=== PATIENT | male | born 1955 | race Caucasian/White ===

== ENCOUNTER 2021-09-22 17:00 | Inpatient (IN) | payer BC, MEDICARE ==
--- NOTE | 2021-09-22 18:39 | US ---
EXAMINATION TYPE: US venous doppler duplex UE RT DATE OF EXAM: 09/22/2021 COMPARISON: NONE CLINICAL HISTORY: r/o SVC syndrome. Patient had excisional biopsy of right sided lymph node, diagnose d with follicular lymphoma, now patient has grossly enlarged and swollen right chest and arm, no h/o dvt, incision site has drainage tube and still actively draining. SIDE PERFORMED: Right Right Arm: Very limited scan due to extensive edema, vessels seen were negative for DVT soft tissue scan of right neck produced multiple small lymph nodes only. IMPRESSION: Limited scan with subcutaneous edema no obvious deep vein thrombosis of the right upper extremity.
[2021-09-22] MEDS ORDERED: DEXTROSE 50% SYRINGE 50 ML IVP PRN ×2 (19:53)
[2021-09-22 20:05] LABS: Glucose,Whole Blood 123 mg/dL (70-110)
[2021-09-22 20:10] LABS: Basophils % (A) 0 %; Eosinophils # (A) 0.1 k/uL (0-0.7); Eosinophils % (A) 1 %; HCT 42.2 % (39.0-53.0); HGB 13.9 gm/dL (13.0-17.5); Lymphocytes # (A) 0.8 k/uL (1.0-4.8); Lymphocytes % (A) 13 %; MCH 32.6 pg (25.0-35.0); MCV 98.9 fL (80.0-100.0); Mean Platelet Volume 7.2; Monocytes # (A) 0.3 k/uL (0-1.0); Monocytes % (A) 5 %; Neutrophils # (A) 4.7 k/uL (1.3-7.7); Neutrophils % (A) 79 %; Platelet Count 632 k/uL (150-450); RBC 4.26 m/uL (4.30-5.90); RDW 13.1 % (11.5-15.5); WBC 5.9 k/uL (3.8-10.6)
[2021-09-22 20:20] LABS: ALT 17 U/L (4-49); AST 47 U/L (17-59); African American GFR (CKD) >90 (>60 ml/min/1.73 sqM); Albumin 3.2 g/dL (3.5-5.0); Albumin/Globulin Ratio 1.4; Alkaline Phosphatase 90 U/L (38-126); Anion Gap 7 mmol/L; Blood Urea Nitrogen 33 mg/dL (9-20); Calcium 8.8 mg/dL (8.4-10.2); Carbon Dioxide 27 mmol/L (22-30); Chloride 91 mmol/L (98-107); Globulin 2.3 g/dL; Glucose 123 mg/dL (74-99); Magnesium 2.2 mg/dL (1.6-2.3); Non-African American GFR(CKD) 90 (>60 ml/min/1.73 sqM); Potassium 4.8 mmol/L (3.5-5.1); Sodium 125 mmol/L (137-145); Total Bilirubin 0.9 mg/dL (0.2-1.3); Total Protein 5.5 g/dL (6.3-8.2)
[2021-09-22 20:25] LABS: LDH 2298 U/L (313-618)
[2021-09-22 20:31] LABS: C Reactive Protein 12.7 mg/dL (<1.0)
[2021-09-22] MEDS: INSULIN ASPART (NovoLOG) 100 UNIT/ML VIAL SQ SCH (20:43)
[2021-09-22 21:32] LABS: Erythrocyte Sedimentation Rate 46 mm/hr (0-15)
[2021-09-22] MEDS ORDERED: SODIUM CHLORIDE 0.9% 1,000 ML IV ONE (23:26)
[2021-09-22] MEDS: SODIUM CHLORIDE 0.9% 1,000 ML IV SCH (23:42)
[2021-09-23] MEDS: HYDROcodone/APAP 5-325MG 1 EACH TAB PO PRN ×4 (00:58→21:03)
[2021-09-23] MEDS: PIPERACILLIN-TAZOBACTAM 3.375 GM in SODIUM CHLORIDE 0.9% 100 ML IVPB SCH ×3 (01:30→15:42)
[2021-09-23 05:25] VITALS: RESP 16
[2021-09-23 06:22] LABS: Basophils % (A) 0 %; Eosinophils # (A) 0.2 k/uL (0-0.7); Eosinophils % (A) 3 %; HCT 37.2 % (39.0-53.0); HGB 12.3 gm/dL (13.0-17.5); Lymphocytes # (A) 0.8 k/uL (1.0-4.8); Lymphocytes % (A) 13 %; MCH 31.8 pg (25.0-35.0); MCV 96.3 fL (80.0-100.0); Mean Platelet Volume 7.2; Monocytes # (A) 0.5 k/uL (0-1.0); Monocytes % (A) 9 %; Neutrophils # (A) 4.3 k/uL (1.3-7.7); Neutrophils % (A) 74 %; Platelet Count 540 k/uL (150-450); RBC 3.86 m/uL (4.30-5.90); RDW 12.6 % (11.5-15.5); WBC 5.8 k/uL (3.8-10.6)
[2021-09-23 06:26] LABS: African American GFR (CKD) >90 (>60 ml/min/1.73 sqM); Anion Gap 3 mmol/L; Blood Urea Nitrogen 29 mg/dL (9-20); Calcium 8.1 mg/dL (8.4-10.2); Carbon Dioxide 26 mmol/L (22-30); Chloride 95 mmol/L (98-107); Glucose 98 mg/dL (74-99); Non-African American GFR(CKD) >90 (>60 ml/min/1.73 sqM); Potassium 4.4 mmol/L (3.5-5.1); Sodium 124 mmol/L (137-145)
[2021-09-23 07:08] LABS: Glucose,Whole Blood 116 mg/dL (70-110)
[2021-09-23] MEDS: INSULIN ASPART (NovoLOG) 100 UNIT/ML VIAL SQ SCH ×4 (07:19→21:01)
[2021-09-23] MEDS: HEPARIN SODIUM,PORCINE/PF 5,000 UNIT/0.5 ML SYRINGE SQ SCH ×2 (08:50→21:01)
[2021-09-23] MEDS: ATORVASTATIN 20 MG TAB PO SCH (08:50)
[2021-09-23] MEDS: PANTOPRAZOLE 40 MG TABLET PO SCH (08:51)
[2021-09-23] MEDS: NICOTINE 14MG/24HR PATCH TRANSDERM SCH (10:07)
[2021-09-23] MEDS ORDERED: METHYL SALICYLATE/MENTHOL CREAM 5 OZ TOPICAL PRN (10:39)
[2021-09-23] MEDS: SODIUM CHLORIDE 0.9% 1,000 ML IV SCH (11:03)
[2021-09-23 11:38] LABS: Glucose,Whole Blood 118 mg/dL (70-110)
--- NOTE | 2021-09-23 11:47 | P.CON ---
Consult Note - . Consult date: 09/23/21 Assessment/Plan:: Mr. 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 Unfortunately, I am not able to view the outside CT at this time. However, clinically I have low concern for SVC syndrome. However, his presentation is notable for an expansile mass that is causing restriction on range of motion and edema of the right upper extremity. By virtue of his skin nodules he is advanced stage and mainstay of therapy will be systemic. He will also need PET/CT. In the meantime, he is a good candidate for palliative radiotherapy to this area as follicular lymphomas tend to be quite radiosensitive. I discussed this with the patient and his and they would like to proceed. He will undergo CT simulation today with treatment to start shortly thereafter. We will likely treat with 2 fractions, or 12 if the disease burden is felt to be large enough that he will not have durable palliation with 2 fractions. He does not need to stay as an inpatient for the duration of treatment. I reviewed expected outcomes and toxicities with the patient and his . Of note, the rapid enlargement of his lesion is not clinically consistent with a low-grade lymphoma. Discussed with Dr. Bar and additional biopsy may be warranted to tease out if there is also a high-grade component to his disease. John Waller MD Radiation Oncology History of Present Illness H&P Date: 09/23/21 Chief Complaint: "I have arm swelling" Mr. 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 His history begins approximately 5-6 weeks ago when he first noticed a mass in his right chest wall. He underwent CT chest with IV contrast at [facility] on 08/26/2021. This demonstrated right axillary lymphadenopathy measuring up to 7.8 cm, as well as contiguous soft tissue extension to involved the right pectoralis major, measuring up to 23.0 cm. There were additional soft tissue nodular deposits along the right chest wall. He met with Dr. Mely Warren and underwent excisional biopsy on 09/06/2021. Final pathology demonstrated follicular lymphoma, grade 1-2. He met with Dr. Warren postoperatively on 09/09/2021 and still has the UTE drain in due to high output. Today, he notes no difficulty with breathing, cough, difficulty swallowing, or facial swelling. He is unable to lift his arms above his head. He does note philip edema of the right upper extremity. He has not yet started therapy for his cancer, having initially been seen yesterday by Dr. Aneudy Bar. Past Medical History Past Medical History: Cancer, Diabetes Mellitus, Hearing Disorder / Deafness, Hyperlipidemia, Hypertension History of Any Multi-Drug Resistant Organisms: None Reported Past Surgical History: Appendectomy, Hernia Repair Past Anesthesia/Blood Transfusion Reactions: No Reported Reaction Past Psychological History: No Psychological Hx Reported Smoking Status: Current every day smoker Past Alcohol Use History: Occasional Past Drug Use History: None Reported - Past Family History Father Family Medical History: Cancer Physical Exam Vitals: Vital Signs Temp Pulse Resp BP Pulse Ox 09/23/21 07:10 97.9 F 103 H 16 104/64 94 L 09/23/21 05:00 98.1 F 101 H 16 104/65 93 L 09/22/21 23:39 98.4 F 107 H 18 91/54 92 L 09/22/21 17:15 98.3 F 100 15 95/58 93 L Intake and Output 09/22/21 09/23/21 09/23/21 22:59 06:59 14:59 Intake Total 590 Output Total 210 195 Balance -210 395 Intake: Oral 590 Output: Drainage 210 195 Right Lateral Chest 210 195 Other: Voiding Method Toilet Toilet Urinal Urinal # Voids 2 Weight 91.5 kg - Constitutional General appearance: cooperative, mild distress - EENT Eyes: normal appearance ENT: hard of hearing - Neck Neck: lymphadenopathy - Respiratory normal respiratory effort - Neurologic upper extremity strength intact - Musculoskeletal philip lymphedema of right upper extremity expansile mass involving the right axilla with extension to the pectoralis major, with UTE drain in place, associated skin nodules inferiorly
[2021-09-23] MEDS ORDERED: METHYL SALICYLATE-MENTHOL OINT (3 OZ TUBE) TOPICAL PRN (12:35)
--- NOTE | 2021-09-23 13:57 | HP ---
HISTORY AND PHYSICAL CHIEF COMPLAINTS: Pain and swelling of the right arm, right axilla and right side of the chest. HISTORY OF PRESENT ILLNESS: This 65-year-old gentleman with a past medical history of diabetes and multiple other medical problems, being followed by Dr. Arnold in the outpatient setting, apparently lifted an air conditioner on July 11 and according to his , the patient noted pain and swelling progressively in the right axilla and the right chest with some limitation of movement. Patient was seen as an outpatient by Dr. Bar and his primary physician. Dr. Mely Warren performed an axillary biopsy reported as low-grade follicular lymphoma. Because of increasing pain and swelling and difficulties, the patient was admitted for further evaluation and treatment. Local radiation is being planned by Radiology. There is no history of any fever, rigors or chills. There is significant induration from the top of the shoulder right up to the upper abdomen. MRV is being planned by Dr. Bar to rule out the possibility of vascular occlusion. PAST MEDICAL HISTORY: Diabetes mellitus. Rest of the history reviewed. HOME MEDICATIONS: Home medications include metformin. The rest of the medications are reviewed and doses are reviewed. ALLERGIES: NONE. FAMILY HISTORY: History of cancer. SOCIAL HISTORY: Smoking. REVIEW OF SYSTEMS: Fourteen-point review of systems negative except as mentioned earlier. PHYSICAL EXAMINATION: Pulse 103, blood pressure 104/62, respirations 16. HEENT: Conjunctivae normal. NECK: Some swelling on the right side. Otherwise, extensive swelling and induration, tenderness in the right shoulder, right arm, right axilla, right side of the chest. is tender with some ecchymosis and indurations felt even up to the upper abdomen. Right leg swelling suggestive of lymphedema also. CARDIOVASCULAR: S1, S2 muffled. RESPIRATION: A few scattered rhonchi. ABDOMEN: Obese. LEGS: No edema. No swelling. NERVOUS SYSTEM: No focal deficit. LABS: WBC 5.2, hemoglobin 12.3, sodium 124. Lactic acid is 2.6. LDH is noted CRP is 12.7. ASSESSMENT: 1. Significant lymphadenopathy on the right side with follicular lymphoma with significant lymphedema and obstruction. 2. Rule out sepsis. 3. Hyponatremia. 4. Diabetes mellitus, type 2. 5. UTE drain in situ. 6. Multiple medical problems. RECOMMENDATIONS AND DISCUSSION: In this 65-year-old gentleman who presented with multiple complex medical issues, we will monitor the patient closely. I would provide symptomatic treatment, DVT prophylaxis. Broad-spectrum IV antibiotics initiated. Also recommend cultures and infectious disease consultation with Dr. Caceres. Follow closely with Dr. Bar. Local radiation per Radiology. Overall prognosis is extremely guarded because of the multiple complex medical issues. Further recommendations to follow. Will cut down the IV fluids. MMODL / IJN: [id number] / [facility]ENTERMireille
--- NOTE | 2021-09-23 14:44 | P.CONS ---
History of Present Illness - Reason for Consult Consult date: 09/23/21 SVC syndrome Requesting physician: Harriett Campbell - Chief Complaint RUE swelling, back pain - History of Present Illness Mr. Gomez is a 65 year old gentleman who presents for a new diagnosis of follicular lymphoma. He and his note the development of right axillary lymphadenopathy at the end of June 2021. A picture on his 's phone had right axillary swelling without right arm or chest swelling. Over time, he noted progressive swelling of his right upper arm and chest. CT chest on 08/26/21 revealed 7.6 cm right axillary lymphadenopathy with noted contiguous extension to the right pectoralis major muscle with thickening measuring 15.1 x 23 cm. Scattered subcutaneous soft tissue deposits were noted in the right lateral thoracic wall & anterior right deltoid muscle. Trace right pleural effusion was also noted. Portocaval lymphadenopathy was also visualized. Excisional biopsy of the right axillary lymph node on 09/06/21 revealed low grade follicular lymphoma. Pathology review revealed CD20 & CD10 expression with weak BCL-2 & BCL-6 expression. Flow cytometry revealed 13% monoclonal population of CD10 positive B-cells that were kappa restricted. He presents today for additional management recommendations. He has extensive swelling of the right arm and upper chest compared to the left side. This is painful in nature and has been controlled with norco5/325 every 6 hours. He has had anorexia and weight loss of about 15-20 Ibs since the end of June 2021. He denies any facial plethora, cough, or dyspnea. He is a current smoker & smokes about 1 pack daily. He has UTE drain in the right axilla draining serous fluid. Per , it has continued to drain since placement with no reduction in fluid quantity. He was direct admitted to [facility] [place] for further work up, SVC syndrome. Elevated lactic acid 3.2, Na+ 124, LDH 2298. Other testing pending. Review of Systems 10 point ROS is neg except as stated in HPI Past Medical History Past Medical History: Cancer, Diabetes Mellitus, Hearing Disorder / Deafness, Hyperlipidemia, Hypertension History of Any Multi-Drug Resistant Organisms: None Reported Past Surgical History: Appendectomy, Hernia Repair Past Anesthesia/Blood Transfusion Reactions: No Reported Reaction Past Psychological History: No Psychological Hx Reported Smoking Status: Current every day smoker Past Alcohol Use History: Occasional Past Drug Use History: None Reported - Past Family History Father Family Medical History: Cancer Medications and Allergies Home Medications Medication Instructions Recorded Confirmed Type Atorvastatin [Lipitor] 20 mg PO DAILY 09/22/21 09/22/21 History HYDROcodone/APAP 5-325MG [Hardesty 1 tab PO Q4HR PRN 09/22/21 09/22/21 History 5-325] lisinopriL [Zestril] 20 mg PO DAILY 09/22/21 09/22/21 History metFORMIN HCL 1,000 mg PO BID 09/22/21 09/22/21 History Allergies Allergy/AdvReac Type Severity Reaction Status Date / Time No Known Allergies Allergy Verified 09/22/21 19:29 Physical Exam Vitals: Vital Signs Temp Pulse Resp BP Pulse Ox 09/23/21 12:47 97.9 F 96 16 111/69 95 09/23/21 07:10 97.9 F 103 H 16 104/64 94 L 09/23/21 05:00 98.1 F 101 H 16 104/65 93 L 09/22/21 23:39 98.4 F 107 H 18 91/54 92 L 09/22/21 17:15 98.3 F 100 15 95/58 93 L Intake and Output 09/22/21 09/23/21 09/23/21 22:59 06:59 14:59 Intake Total 590 Output Total 210 195 Balance -210 395 Intake: Oral 590 Output: Drainage 210 195 Right Lateral Chest 210 195 Other: Voiding Method Toilet Toilet Urinal Urinal # Voids 2 Weight 91.5 kg RUE skin is blistered. The right chest and shoulder are swollen, hard to touch, pt can raise the arm with pain. Rt ax LN removal incision red - Constitutional General appearance: average body habitus, cooperative, no acute distress - EENT Eyes: anicteric sclerae, EOMI ENT: hard of hearing, normal oropharynx - Neck Neck: lymphadenopathy - Respiratory Respiratory: right: other (no breath sounds in RML, faint in RLL), bilateral: diminished - Cardiovascular Rhythm: regular Heart sounds: normal: S1, S2 Abnormal Heart Sounds: no systolic murmur, no diastolic murmur, no rub, no S3 Gallop, no S4 Gallop, no click, no other leg Peripheral Edema: bilateral: Trace - Gastrointestinal Entire rt side of abd is hard to palpation, not painful, it is not hempatomegaly, BS +, soft otherwise General gastrointestinal: normal bowel sounds - Integumentary Rt arm skin is blistered, visible severe venous congestion of the right chest, sternum - Neurologic Neurologic: CNII-XII intact (grossly) - Psychiatric Psychiatric: A&O x's 3, appropriate affect, intact judgment & insight Results CBC & Chem 7: 09/23/21 05:59 09/23/21 05:59 Labs: Abnormal Lab Results - Last 24 Hours (Table) 09/22/21 09/22/21 09/22/21 Range/Units 19:54 19:54 19:54 RBC 4.26 L (4.30-5.90) m/uL Hgb (13.0-17.5) gm/dL Hct (39.0-53.0) % Plt Count 632 H (150-450) k/uL Lymphocytes # 0.8 L (1.0-4.8) k/uL ESR 46 H (0-15) mm/hr Sodium 125 L (137-145) mmol/L Chloride 91 L (98-107) mmol/L BUN 33 H (9-20) mg/dL Glucose 123 H (74-99) mg/dL POC Glucose (mg/dL) (70-110) mg/dL Hemoglobin A1c (0.0-6.0) % Plasma Lactic Acid Alfredo (0.7-2.0) mmol/L Calcium (8.4-10.2) mg/dL Lactate Dehydrogenase 2298 H (313-618) U/L C-Reactive Protein 12.7 H (<1.0) mg/dL Total Protein 5.5 L (6.3-8.2) g/dL Albumin 3.2 L (3.5-5.0) g/dL Procalcitonin 0.22 H (0.02-0.09) ng/mL 09/22/21 09/22/21 09/22/21 Range/Units 20:00 20:03 22:45 RBC (4.30-5.90) m/uL Hgb (13.0-17.5) gm/dL Hct (39.0-53.0) % Plt Count (150-450) k/uL Lymphocytes # (1.0-4.8) k/uL ESR (0-15) mm/hr Sodium (137-145) mmol/L Chloride (98-107) mmol/L BUN (9-20) mg/dL Glucose (74-99) mg/dL POC Glucose (mg/dL) 123 H (70-110) mg/dL Hemoglobin A1c 6.2 H (0.0-6.0) % Plasma Lactic Acid Alfredo 3.2 H* (0.7-2.0) mmol/L Calcium (8.4-10.2) mg/dL Lactate Dehydrogenase (313-618) U/L C-Reactive Protein (<1.0) mg/dL Total Protein (6.3-8.2) g/dL Albumin (3.5-5.0) g/dL Procalcitonin (0.02-0.09) ng/mL 09/23/21 09/23/21 09/23/21 Range/Units 01:16 05:59 05:59 RBC 3.86 L (4.30-5.90) m/uL Hgb 12.3 L (13.0-17.5) gm/dL Hct 37.2 L (39.0-53.0) % Plt Count 540 H (150-450) k/uL Lymphocytes # 0.8 L (1.0-4.8) k/uL ESR (0-15) mm/hr Sodium 124 L (137-145) mmol/L Chloride 95 L (98-107) mmol/L BUN 29 H (9-20) mg/dL Glucose (74-99) mg/dL POC Glucose (mg/dL) (70-110) mg/dL Hemoglobin A1c (0.0-6.0) % Plasma Lactic Acid Alfredo 3.1 H* (0.7-2.0) mmol/L Calcium 8.1 L (8.4-10.2) mg/dL Lactate Dehydrogenase (313-618) U/L C-Reactive Protein (<1.0) mg/dL Total Protein (6.3-8.2) g/dL Albumin (3.5-5.0) g/dL Procalcitonin (0.02-0.09) ng/mL 09/23/21 09/23/21 09/23/21 Range/Units 05:59 07:05 08:34 RBC (4.30-5.90) m/uL Hgb (13.0-17.5) gm/dL Hct (39.0-53.0) % Plt Count (150-450) k/uL Lymphocytes # (1.0-4.8) k/uL ESR (0-15) mm/hr Sodium (137-145) mmol/L Chloride (98-107) mmol/L BUN (9-20) mg/dL Glucose (74-99) mg/dL POC Glucose (mg/dL) 116 H (70-110) mg/dL Hemoglobin A1c (0.0-6.0) % Plasma Lactic Acid Alfredo 2.7 H* 2.6 H* (0.7-2.0) mmol/L Calcium (8.4-10.2) mg/dL Lactate Dehydrogenase (313-618) U/L C-Reactive Protein (<1.0) mg/dL Total Protein (6.3-8.2) g/dL Albumin (3.5-5.0) g/dL Procalcitonin (0.02-0.09) ng/mL 09/23/21 Range/Units 11:37 RBC (4.30-5.90) m/uL Hgb (13.0-17.5) gm/dL Hct (39.0-53.0) % Plt Count (150-450) k/uL Lymphocytes # (1.0-4.8) k/uL ESR (0-15) mm/hr Sodium (137-145) mmol/L Chloride (98-107) mmol/L BUN (9-20) mg/dL Glucose (74-99) mg/dL POC Glucose (mg/dL) 118 H (70-110) mg/dL Hemoglobin A1c (0.0-6.0) % Plasma Lactic Acid Alfredo (0.7-2.0) mmol/L Calcium (8.4-10.2) mg/dL Lactate Dehydrogenase (313-618) U/L C-Reactive Protein (<1.0) mg/dL Total Protein (6.3-8.2) g/dL Albumin (3.5-5.0) g/dL Procalcitonin (0.02-0.09) ng/mL Venous US: report reviewed (no DVT in the RUE) Assessment and Plan (1) Follicular lymphoma Current Visit: Yes Status: Acute Priority: High Code(s): C82.90 - FOLLICULAR LYMPHOMA, UNSPECIFIED, UNSPECIFIED SITE SNOMED Code(s): 106573967 (2) SVC syndrome Current Visit: Yes Status: Acute Priority: High Code(s): I87.1 - COMPRESSION OF VEIN SNOMED Code(s): 30144584 Plan: New diagnosis of follicular lymphoma. Rapid progression of symptoms, not common with low grade lymphoma. May consider biopsy of SQ mass/lesions SVC syndrome. MRV neck and RUE to assess for venous obstruction-pending MRI telling me how to appropriately order these tests Mult labs to assess for TLS. Pt is on abx for elevated lactic acid. Pancultures pending. Pt is on abx Dr. Bar discussed case with Rad Onc and Attending. PET outpt F/U and treatment plans after DC attests: I have performed H&P, seen and examined pt, developed impression and plan of care. Discussed with dictator. Agree with documentation, dictated as a scribe. Time with Patient: Greater than 30
[2021-09-23 17:13] LABS: Glucose,Whole Blood 147 mg/dL (70-110)
[2021-09-23 18:36] LABS: Uric Acid 6.3 mg/dL (3.7-8.7)
[2021-09-23 20:18] LABS: Glucose,Whole Blood 190 mg/dL (70-110)
[2021-09-23 21:35] LABS: HIV 2 AB Non-Reactive (Non-Reactive); HIV AB P24 Non-Reactive (Non-Reactive); HIV P24 AG Non-Reactive (Non-Reactive)
--- NOTE | 2021-09-24 00:11 | XR ---
EXAMINATION TYPE: XR chest 2V DATE OF EXAM: 09/23/2021 COMPARISON: NONE HISTORY: Cough TECHNIQUE: 2 views FINDINGS: There is increased density over the right hemithorax consistent with pleural effusion. Hear t size is normal. No heart failure. There is some coarsening of interstitial markings. Trachea is mid line. Bony thorax is intact. IMPRESSION: There is evidence of right lower lobe infiltrate and subpulmonic pleural effusion. No obv ious heart failure.
[2021-09-24] MEDS: PIPERACILLIN-TAZOBACTAM 3.375 GM in SODIUM CHLORIDE 0.9% 100 ML IVPB SCH ×2 (00:35→08:44)
[2021-09-24] MEDS: SODIUM CHLORIDE 0.9% 1,000 ML IV SCH (00:36)
[2021-09-24] MEDS: HYDROcodone/APAP 5-325MG 1 EACH TAB PO PRN ×2 (06:05→14:29)
[2021-09-24 07:03] LABS: Glucose,Whole Blood 113 mg/dL (70-110)
[2021-09-24] MEDS: PANTOPRAZOLE 40 MG TABLET PO SCH (07:45)
[2021-09-24] MEDS: ATORVASTATIN 20 MG TAB PO SCH (07:46)
[2021-09-24] MEDS: HEPARIN SODIUM,PORCINE/PF 5,000 UNIT/0.5 ML SYRINGE SQ SCH (07:46)
--- NOTE | 2021-09-24 08:19 | P.CONS ---
History of Present Illness - Reason for Consult Consult date: 09/23/21 Sepsis Requesting physician: Shree Villaseñor - Chief Complaint right arm and chest swelling x weeks - History of Present Illness Patient is a 65-year-old male with recent diagnosis of follicular lymphoma this patient apparently noticed to having right axillary swelling lymphadenopathy and of June 2021 with significant swelling of the right side of the chest and right upper arm with a CT done on 08/26/2021 did show 7.6 cm right axilla lymphadenopathy with the extension into the right pectoralis major muscle patient did have a biopsy done on 09/06/2021 with evidence of low-grade follicular lymphoma patient apparently was evaluated at the oncology office and with worsening of his swelling redness subsequently has been admitted to the hospital for further work-up patient denies having any fever or any chills, patient been complaining of pain to the right side of the chest right upper extremity more of a dull aching pain 4 to 5-10 and radiation and denies any worsening pain patient did have a drainage catheter to the right axillary area since his biopsy and mention has been draining mostly yellowish fluid no purulence, patient on presentation to the hospital was afebrile and no fever have been recorded subsequently HIV testing has been negative patient did have normal white count with no left shift creatinine has been normal lactic acid is elevated liver enzymes are normal blood cultures obtained which are currently pending patient did have Doppler ultrasound limited skin no obvious DVT on the right upper extremity chest x-ray evidence of right lower lobe infiltrate and subpulmonic pleural effusion patient was started on Zosyn infectious disease was consulted concerning for sepsis Review of Systems Positive point has been mentioned in the HPI rest of the systems are negative Past Medical History Past Medical History: Cancer, Diabetes Mellitus, Hearing Disorder / Deafness, Hyperlipidemia, Hypertension History of Any Multi-Drug Resistant Organisms: None Reported Past Surgical History: Appendectomy, Hernia Repair Past Anesthesia/Blood Transfusion Reactions: No Reported Reaction Past Psychological History: No Psychological Hx Reported Smoking Status: Current every day smoker Past Alcohol Use History: Occasional Past Drug Use History: None Reported - Past Family History Father Family Medical History: Cancer Medications and Allergies Home Medications Medication Instructions Recorded Confirmed Type Atorvastatin [Lipitor] 20 mg PO DAILY 09/22/21 09/22/21 History HYDROcodone/APAP 5-325MG [[place] 1 tab PO Q4HR PRN 09/22/21 09/22/21 History 5-325] lisinopriL [Zestril] 20 mg PO DAILY 09/22/21 09/22/21 History metFORMIN HCL 1,000 mg PO BID 09/22/21 09/22/21 History Allergies Allergy/AdvReac Type Severity Reaction Status Date / Time No Known Allergies Allergy Verified 09/22/21 19:29 Physical Exam Vitals: Vital Signs Temp Pulse Resp BP Pulse Ox 09/23/21 12:47 97.9 F 96 16 111/69 95 09/23/21 07:10 97.9 F 103 H 16 104/64 94 L 09/23/21 05:00 98.1 F 101 H 16 104/65 93 L 09/22/21 23:39 98.4 F 107 H 18 91/54 92 L 09/22/21 17:15 98.3 F 100 15 95/58 93 L Intake and Output 09/23/21 09/23/21 09/23/21 06:59 14:59 22:59 Intake Total 590 Output Total 195 Balance 395 Intake: Oral 590 Output: Drainage 195 Right Lateral Chest 195 Other: Voiding Method Toilet Urinal # Voids 2 GENERAL DESCRIPTION: Elderly male lying in bed, no distress. No tachypnea or accessory muscle of respiration use. HEENT: Shows Pallor , no scleral icterus. Oral mucous membrane is dry. No pharyngeal erythema or thrush NECK: Trachea central, no thyromegaly. LUNGS: Unlabored breathing. Clear to auscultation anteriorly. No wheeze or crackle. HEART: S1, S2, regular rate and rhythm. No loud murmur ABDOMEN: Soft, no tenderness , guarding or rigidity, no organomegaly EXTREMITIES: Significant swelling of the right shoulder chest and upper extremity SKIN: No rash, no masses palpable. NEUROLOGICAL: The patient is awake, alert, oriented x3, mood and affect normal. Results CBC & Chem 7: 09/23/21 05:59 09/23/21 05:59 Labs: Abnormal Lab Results - Last 24 Hours (Table) 09/22/21 09/22/21 09/22/21 Range/Units 19:54 19:54 19:54 RBC 4.26 L (4.30-5.90) m/uL Hgb (13.0-17.5) gm/dL Hct (39.0-53.0) % Plt Count 632 H (150-450) k/uL Lymphocytes # 0.8 L (1.0-4.8) k/uL ESR 46 H (0-15) mm/hr Sodium 125 L (137-145) mmol/L Chloride 91 L (98-107) mmol/L BUN 33 H (9-20) mg/dL Glucose 123 H (74-99) mg/dL POC Glucose (mg/dL) (70-110) mg/dL Hemoglobin A1c (0.0-6.0) % Plasma Lactic Acid Alfredo (0.7-2.0) mmol/L Calcium (8.4-10.2) mg/dL Lactate Dehydrogenase 2298 H (313-618) U/L C-Reactive Protein 12.7 H (<1.0) mg/dL Total Protein 5.5 L (6.3-8.2) g/dL Albumin 3.2 L (3.5-5.0) g/dL Procalcitonin 0.22 H (0.02-0.09) ng/mL 09/22/21 09/22/21 09/22/21 Range/Units 20:00 20:03 22:45 RBC (4.30-5.90) m/uL Hgb (13.0-17.5) gm/dL Hct (39.0-53.0) % Plt Count (150-450) k/uL Lymphocytes # (1.0-4.8) k/uL ESR (0-15) mm/hr Sodium (137-145) mmol/L Chloride (98-107) mmol/L BUN (9-20) mg/dL Glucose (74-99) mg/dL POC Glucose (mg/dL) 123 H (70-110) mg/dL Hemoglobin A1c 6.2 H (0.0-6.0) % Plasma Lactic Acid Alfredo 3.2 H* (0.7-2.0) mmol/L Calcium (8.4-10.2) mg/dL Lactate Dehydrogenase (313-618) U/L C-Reactive Protein (<1.0) mg/dL Total Protein (6.3-8.2) g/dL Albumin (3.5-5.0) g/dL Procalcitonin (0.02-0.09) ng/mL 09/23/21 09/23/21 09/23/21 Range/Units 01:16 05:59 05:59 RBC 3.86 L (4.30-5.90) m/uL Hgb 12.3 L (13.0-17.5) gm/dL Hct 37.2 L (39.0-53.0) % Plt Count 540 H (150-450) k/uL Lymphocytes # 0.8 L (1.0-4.8) k/uL ESR (0-15) mm/hr Sodium 124 L (137-145) mmol/L Chloride 95 L (98-107) mmol/L BUN 29 H (9-20) mg/dL Glucose (74-99) mg/dL POC Glucose (mg/dL) (70-110) mg/dL Hemoglobin A1c (0.0-6.0) % Plasma Lactic Acid Alfredo 3.1 H* (0.7-2.0) mmol/L Calcium 8.1 L (8.4-10.2) mg/dL Lactate Dehydrogenase (313-618) U/L C-Reactive Protein (<1.0) mg/dL Total Protein (6.3-8.2) g/dL Albumin (3.5-5.0) g/dL Procalcitonin (0.02-0.09) ng/mL 09/23/21 09/23/21 09/23/21 Range/Units 05:59 07:05 08:34 RBC (4.30-5.90) m/uL Hgb (13.0-17.5) gm/dL Hct (39.0-53.0) % Plt Count (150-450) k/uL Lymphocytes # (1.0-4.8) k/uL ESR (0-15) mm/hr Sodium (137-145) mmol/L Chloride (98-107) mmol/L BUN (9-20) mg/dL Glucose (74-99) mg/dL POC Glucose (mg/dL) 116 H (70-110) mg/dL Hemoglobin A1c (0.0-6.0) % Plasma Lactic Acid Alfredo 2.7 H* 2.6 H* (0.7-2.0) mmol/L Calcium (8.4-10.2) mg/dL Lactate Dehydrogenase (313-618) U/L C-Reactive Protein (<1.0) mg/dL Total Protein (6.3-8.2) g/dL Albumin (3.5-5.0) g/dL Procalcitonin (0.02-0.09) ng/mL 09/23/21 Range/Units 11:37 RBC (4.30-5.90) m/uL Hgb (13.0-17.5) gm/dL Hct (39.0-53.0) % Plt Count (150-450) k/uL Lymphocytes # (1.0-4.8) k/uL ESR (0-15) mm/hr Sodium (137-145) mmol/L Chloride (98-107) mmol/L BUN (9-20) mg/dL Glucose (74-99) mg/dL POC Glucose (mg/dL) 118 H (70-110) mg/dL Hemoglobin A1c (0.0-6.0) % Plasma Lactic Acid Alfredo (0.7-2.0) mmol/L Calcium (8.4-10.2) mg/dL Lactate Dehydrogenase (313-618) U/L C-Reactive Protein (<1.0) mg/dL Total Protein (6.3-8.2) g/dL Albumin (3.5-5.0) g/dL Procalcitonin (0.02-0.09) ng/mL Assessment and Plan (1) Abnormal x-ray Current Visit: Yes Status: Acute Code(s): R93.89 - ABNORMAL FINDINGS ON DX IMAGING OF OTH BODY STRUCTURES SNOMED Code(s): 963030310 (2) Lactic acid acidosis Current Visit: Yes Status: Acute Code(s): E87.2 - ACIDOSIS SNOMED Code(s): 39645157 Plan: 1patient presented to hospital with extensive swelling of the right upper extremity and right-sided chest wall with recent diagnosis of follicular lympho ma likely related to weight clinic not behaving as a cellulitis and the drainage catheter is draining mostly serous fluid without evidence of any purulence patient with no fever or elevated white count treatment per oncology. 2patient with an abnormal x-ray is suggestive of possible pneumonia and e ffusion however the patient do not have any significant respiratory symptoms of cough and sputum production and no fever or elevated white count. 3we will check inflammatory markers. 4May continue with Zosyn while awaiting further work-up to be completed. We will follow on clinical condition and cultures to further adjust medication if needed Thank you for this consultation will follow this patient along with you Time with Patient: Greater than 30
[2021-09-24] MEDS: NICOTINE 14MG/24HR PATCH TRANSDERM SCH (08:55)
[2021-09-24] MEDS: INSULIN ASPART (NovoLOG) 100 UNIT/ML VIAL SQ SCH (08:55)
[2021-09-24 09:13] LABS: Basophils # (A) 0.02 X 10*3/uL (0.00-0.10); Basophils % (A) 0.4 %; Eosinophils % (A) 1.8 %; HGB 12.4 g/dL (13.0-17.0); Immature Grans, Automated 0.2 %; Lymphocytes # (A) 0.82 X 10*3/uL (0.90-5.00); Lymphocytes % (A) 14.8 %; MCH 32.2 pg (27.0-32.0); MCHC 34.4 g/dL (32.0-37.0); MCV 93.5 fL (80.0-97.0); Mean Platelet Volume 9.3 fL (9.5-12.2); Monocytes # (A) 0.61 X 10*3/uL (0.20-1.00); NRBC Per 100 WBC 0 /100 WBCS (0.0-0.0); Neutrophils # (A) 3.99 X 10*3/uL (1.80-7.70); Neutrophils % (A) 71.8 %; Platelet Count 492 X 10*3/uL (140-440); RBC 3.85 X 10*6/uL (4.40-5.60); RDW 12.9 % (11.5-14.5); WBC 5.55 X 10*3/uL (4.50-10.00)
[2021-09-24 10:18] LABS: African American GFR (CKD) 107.1 (60.0-200.0); Albumin 3.1 g/dL (3.8-4.9); Albumin/Globulin Ratio 1.63 (1.60-3.17); Anion Gap 11.6 mmol/L (10.00-18.00); BUN/Creat Ratio 27.25 Ratio (12.00-20.00); Blood Urea Nitrogen 21.8 mg/dL (9.0-27.0); Calcium 8.3 mg/dL (8.7-10.3); Carbon Dioxide 21.4 mmol/L (20.0-27.5); Globulin 1.9 g/dL (1.6-3.3); Non-African American GFR(CKD) 92.4 (60.0-200.0); Phosphorus 2.2 mg/dL (2.4-5.1); Potassium 4.4 mmol/L (3.5-5.5); Total Bilirubin 0.8 mg/dL (0.30-1.20)
[2021-09-24 10:59] LABS: Amorphous Sediment,Urine Rare /hpf; Appearance,Urine Cloudy (Clear); Bilirubin,Urine Negative (Negative); Blood,Urine Negative (Negative); Color,Urine Yellow; Glucose,Urine (UA) Negative (Negative); Ketones,Urine Trace (Negative); Leukocyte Esterase,Urine Negative (Negative); Mucus,Urine Rare /hpf; Nitrite,Urine Negative (Negative); PH, Urine 5.5 (5.0-8.0); Protein,Urine Trace (Negative); RBC,Urine 1 /hpf (0-5); Specific Gravity,Urine 1.027 (1.001-1.035); Urobilinogen,Urine <2.0 mg/dL (<2.0); WBC,Urine 2 /hpf (0-5)
[2021-09-24 13:59] VITALS: BP 119/72; PULSE 106; TEMP 97.8
[2021-09-24 14:22] LABS: Prothrombin Time 10.6 sec (9.0-12.0)
--- NOTE | 2021-09-24 15:03 | P.DS ---
Providers Date of admission: 09/22/21 17:00 Expected date of discharge: 09/24/21 Attending physician: Adilia Lomax Consults: 09/22/21 17:28 Consult Physician Routine Consulting Provider: Luis Lea Consult Reason/Comments: possible lymphoma Do you want consulting provider notified?: Yes Placement Type Exists?: Yes 09/22/21 19:14 Consult Physician Routine Consulting Provider: Aneudy Bar Consult Reason/Comments: lymphoma work up Do you want consulting provider notified?: Already Contacted 09/23/21 12:21 Consult Physician Routine Consulting Provider: Eduardo Caceres Consult Reason/Comments: sepsis Do you want consulting provider notified?: Yes Primary care physician: [facility] Course: Final diagnosis Significant lymphadenopathy on the right side with follicular lymphoma with significant lymphedema and obstruction Sepsis, present on admission Hyponatremia Diabetes mellitus type 2 UTE drain and situ Multiple medical conditions Discharge disposition Patient is leaving AGAINST MEDICAL ADVICE. Risks versus benefits have been explained and patient has signed the paperwork. Patient is alert and oriented 3 and is at the bedside. Patient will follow-up with primary care provider Dr. Bar and also encourage the patient to follow-up with his surgeon Dr. Warren in the outpatient setting. Patient does have a scheduled a ppointment with radiation on Monday which she is aware of and reports he will come to. Total time taken is greater than 35 minutes. Hospital course This is a 65-year-old male who was recently admitted with extensive swelling and edema noted of the right upper extremity chest and neck and was being closely monitored by infectious disease along with oncology. Patient was initiated on IV antibiotics with ID following and also was scheduled to undergo MRI and wanted CT testing of the chest. Patient did perform the MRI with results pending although is refusing any further CT testing. Patient is adamant about going home and is bleeding with a steady gait. Oncology was made aware. Patient continues with drain on the chest and reports he has been following with Dr. Warren closely in the outpatient setting. has been monitoring his output and keeping track of all of his swelling. Encourage the to continue to do so and please come to the ER if anything changes. Patient and verbalized understanding. Patient will be leaving AGAINST MEDICAL ADVICE at this time. Currently no reports of chest pain, shortness of breath, or palpitations. Patient is afebrile. No reports of nausea or vomiting and patient is tolerating diet. Physical exam: Gen: This is a 65-year-old male awake, alert and oriented 3 HEENT: Head is atraumatic, normocephalic. Pupils equal, round. Sclerae is anicteric. NECK: Supple. No JVD. No lymphadenopathy. No thyromegaly. LUNGS: Breath sounds bilaterally with some scattered rhonchi noted. Chest with extensive right upper side swelling up into the neck and right upper extremity. UTE drain noted with fluid. No intercostal retractions. HEART: Regular rate and rhythm. No murmur. ABDOMEN: Soft. Bowel sounds are present. No masses. No tenderness. EXTREMITIES: No pedal edema. No calf tenderness. NEUROLOGICAL: Patient is awake, alert and oriented x3. Cranial nerves 2 through 12 are grossly intact. Please refer to medication reconciliation sheet for a list of medications. The impression and plan of care has been dictated by Mora Long, Nurse Practitioner as directed. Dr. Kasi MD I have performed a history and examination and MDM of this patient, discussed the same with the dictator, and agree with the dictator's assessment and plan as written ,documented as a scribe. Based on total visit time, I have performed more than 50% of the visit. Patient Condition at Discharge: Serious Plan - Discharge Summary Discharge Rx Participant: No New Discharge Prescriptions: No Action metFORMIN HCL 1,000 mg PO BID lisinopriL [Zestril] 20 mg PO DAILY HYDROcodone/APAP 5-325MG [[place] 5-325] 1 tab PO Q4HR PRN PRN Reason: Pain Atorvastatin [Lipitor] 20 mg PO DAILY Discharge Medication List Atorvastatin [Lipitor] 20 mg PO DAILY 09/22/21 [History] HYDROcodone/APAP 5-325MG [[place] 5-325] 1 tab PO Q4HR PRN 09/22/21 [History] lisinopriL [Zestril] 20 mg PO DAILY 09/22/21 [History] metFORMIN HCL 1,000 mg PO BID 09/22/21 [History]
--- NOTE | 2021-09-24 15:11 | P.PN ---
Subjective Progress Note Date: 09/24/21 This Is a 65-year-old male who follows with Dr. Arnold in the outpatient setting and had been following with Dr. garnett and Dr. Bar in the outpatient setting for extensive right upper extremity and axilla lymphedema. Patient does have a drain and has been having drain status post biopsy that showed some low-grade follicular lymphoma. Patient having increasing swelling up into the right upper chest and neck and increasing swelling of the right upper extremity and was sent here for further evaluation. Patient also with an elevated lactic acid and was initiated on antibiotics with ID following. There is a possibility of vascular occlusion. Radiation oncology was consulted and radiation was started and patient does have follow-up appointments that is scheduled for Monday. Patient underwent MRI of the right upper extremity which was done although report is pending. Patient is afebrile denies any chest pain or shortness of breath. Patient is extremely anxious to leave and reports he will be leaving AGAINST MEDICAL ADVICE if not discharged. Discussed with the patient extensively about staying to continue treatment plan and patient reports he was agreeable with the testing. Review of systems: Constitutional: No reports of fatigue, fever, or chills Cardiovascular: No reports of chest pain or palpitations home continues to report extreme right upper chest swelling and increased output noted in the drain of the right chest Respiratory: No reports of shortness of breath or cough GI: reports of nausea, no reports of of vomiting : No reports of dysuria or retention Neurovascular: reports of generalized weakness All medications have been reviewed PHYSICAL EXAMINATION: GENERAL: The patient is alert and oriented x4, Well developed, well nourished. HEENT: Pupils are round and equally reacting to light. EOMI. no scleral icterus. No conjunctival pallor. Normocephalic, atraumatic. No pharyngeal erythema. No thyromegaly. 2 new swelling of the right upper neck into the chest right arm shoulder and axilla with some ecchymosis noted CARDIOVASCULAR: S1 and S2 muffled PULMONARY: diminished breath sounds bilaterally with scattered rhonchi noted. ABDOMEN: soft. Nontender on exam. non-distended, normoactive bowel sounds. No palpable organomegaly. MUSCULOSKELETAL: No joint swelling or deformity. EXTREMITIES: No cyanosis, clubbing, or pedal edema. Right lower extremity swelling with edema NEUROLOGICAL: Gross neurological examination did not reveal any focal deficits. SKIN: No rashes. Assessment: Right femoral neck fracture Fall status post direct anterior right hip blanca-arthroplasty Diabetes mellitus type 2 Possible acute urinary tract infection, present on admission Hypertension Dementia/depression History of breast cancer GI prophylaxis DVT prophylaxis Full code Plan: Recommend to continue with current medications and management with oncology, radiation oncology and infectious disease following. Patient's lactic acids continue to be elevated although is afebrile. Patient is maintained on antibiotics and also currently having radiation treatment with Dr. Lea today. Patient does have scheduled outpatient follow-ups for radiation this Monday. Patient scheduled to undergo MRI of the upper extremity on the right and did agree to this although report is pending. Attempted to order CT chest and neck to evaluate and patient is refusing at this time. Patient was under the understanding he would have an MRI of this extremity and start radiation and would be discharged. Given patient's severity of the clinical picture including increased drainage and output of his drain discussed with the patient about continuing hospitalization to follow-up with labs and further testing. Risks versus benefits were explained about leaving AGAINST MEDICAL ADVICE including inpatient continued to be adamant about leaving today. Oncology was notified and encourage the patient to follow-up with his primary care provider, surgeon Dr. Garnett, radiation oncology, and oncology in the outpatient setting. Patient and verbalized understanding and reports they have follow-up appointments scheduled. Will continue to Monitor closely during hospitalization. Due to multiple complex medical issues, prognosis is guarded. The impression and plan of care has been dictated by Mora Long, nurse practitioner as directed. MD Jacek I have performed a history and examination and MDM of this patient, discussed the same with the dictator, and agree with the dictator's assessment and plan as written ,documented as a scribe. Based on total visit time, I have performed more than 50% of the visit. Any additional findings or plans will be noted. Objective - Vital Signs Vital signs: Vital Signs Temp 97.9 F 09/24/21 07:02 Pulse 105 H 09/24/21 07:02 Resp 16 09/24/21 07:02 BP 103/66 09/24/21 07:02 Pulse Ox 95 09/24/21 07:02 FiO2 Intake & Output 09/23/21 09/24/21 09/24/21 18:59 06:59 18:59 Intake Total 100 15 Output Total 75 Balance 25 15 Intake: Intake, IV Titration 100 Amount Piperacillin-Tazobactam 3 100 .375 gm In Sodium Chloride 0.9% 100 ml @ 25 mls/hr IVPB Q8HR [facility] Rx# :[id number] Oral 15 Output: Drainage 75 Right Lateral Chest 75 Other: Voiding Method Toilet Toilet Toilet Urinal Urinal Urinal # Voids 2 - Labs CBC & Chem 7: 09/24/21 05:55 09/24/21 05:55 Labs: Abnormal Lab Results - Last 24 Hours (Table) 09/23/21 09/23/21 09/23/21 Range/Units 11:37 14:32 17:12 RBC (4.40-5.60) X 10*6/uL Hgb (13.0-17.0) g/dL Hct (39.6-50.0) % MCH (27.0-32.0) pg Plt Count (140-440) X 10*3/uL MPV (9.5-12.2) fL Lymphocytes # (0.90-5.00) X 10*3/uL POC Glucose (mg/dL) 118 H 147 H (70-110) mg/dL Plasma Lactic Acid Alfredo (0.7-2.0) mmol/L Lactate Dehydrogenase 797 H (120-246) U/L 09/23/21 09/24/21 09/24/21 Range/Units 20:14 05:55 05:55 RBC 3.85 L (4.40-5.60) X 10*6/uL Hgb 12.4 L (13.0-17.0) g/dL Hct 36.0 L (39.6-50.0) % MCH 32.2 H (27.0-32.0) pg Plt Count 492 H (140-440) X 10*3/uL MPV 9.3 L (9.5-12.2) fL Lymphocytes # 0.82 L (0.90-5.00) X 10*3/uL POC Glucose (mg/dL) 190 H (70-110) mg/dL Plasma Lactic Acid Alfredo 3.4 H* (0.7-2.0) mmol/L Lactate Dehydrogenase (120-246) U/L 09/24/21 Range/Units 07:01 RBC (4.40-5.60) X 10*6/uL Hgb (13.0-17.0) g/dL Hct (39.6-50.0) % MCH (27.0-32.0) pg Plt Count (140-440) X 10*3/uL MPV (9.5-12.2) fL Lymphocytes # (0.90-5.00) X 10*3/uL POC Glucose (mg/dL) 113 H (70-110) mg/dL Plasma Lactic Acid Alfredo (0.7-2.0) mmol/L Lactate Dehydrogenase (120-246) U/L Microbiology - Last 24 Hours (Table) 09/23/21 01:16 Blood Culture - Preliminary Blood No Growth after 24 hours
--- NOTE | 2021-09-24 15:57 | MR ---
MR angiogram of the right upper deformity with and without contrast HISTORY: Swelling right upper extremity, SVC syndrome, follicular lymphoma Multiplanar multisequence imaging obtained pre and post administration of 9 cc Gadavist IV in the rig ht upper extremity correlation to ultrasound of right upper extremity There is abnormal signal, swelling involving the anterior chest wall at the level of the right upper extremity and extending inferiorly, heterogeneous signal is present on T1 and T2-weighted sequences, difficult to exclude some associated hemorrhage. Exam somewhat limited technically, there is artifact present. The vasculature in the [id number] shows patent subclavian artery, common carotid arteries, interna l and external carotid arteries are patent., Right axillary and Christopher arteries centrally are patent , the innominate artery, left subclavian arteries centrally are patent. The right innominate vein and superior vena cava are patent. There is artifact of the chest. Segment of subclavian vein appears markedly attenuated at the level of the upper right chest and abnormal sof t tissue. Axillary vein is patent as is the central portion of the brachial vein. 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
== END 2021-09-24 14:50 | disposition home or self-care (01) | DRG 840 ==
LOC: 5NMEDONC 17:00
PROVIDERS: ADMIT Internal Medicine; ATTEND Internal Medicine
DX: C82.90 Follicular lymphoma, unspecified, unspecified site (principal); A41.9 Sepsis, unspecified organism; S72.001A Fracture of unspecified part of neck of right femur, initial encounter for closed fracture; I87.1 Compression of vein; E87.1 Hypo-osmolality and hyponatremia; E87.2 Acidosis; N39.0 Urinary tract infection, site not specified; F03.90 Unspecified dementia, unspecified severity, without behavioral disturbance, psychotic disturbance, mood disturbance, and anxiety; F32.A Depression, unspecified; E11.9 Type 2 diabetes mellitus without complications; I10 Essential (primary) hypertension; R63.4 Abnormal weight loss; I89.0 Lymphedema, not elsewhere classified; M79.89 Other specified soft tissue disorders; F17.210 Nicotine dependence, cigarettes, uncomplicated; R60.0 Localized edema; Z96.89 Presence of other specified functional implants; E78.5 Hyperlipidemia, unspecified; H91.90 Unspecified hearing loss, unspecified ear; W19.XXXA Unspecified fall, initial encounter; Z53.29 Procedure and treatment not carried out because of patient's decision for other reasons; M54.9 Dorsalgia, unspecified; R63.0 Anorexia; Z68.30 Body mass index [BMI] 30.0-30.9, adult; Z90.89 Acquired absence of other organs; Z98.890 Other specified postprocedural states; Z79.899 Other long term (current) drug therapy; Z79.84 Long term (current) use of oral hypoglycemic drugs; Z85.3 Personal history of malignant neoplasm of breast; Z92.3 Personal history of irradiation; Z80.9 Family history of malignant neoplasm, unspecified
CPT/HCPCS: 71046; 77290; 80048; 80053; 81001; 82550; 83036; 83605; 83615; 83735; 84100; 84145; 84550; 85025; 85610; 85652; 86140; 87040; 87390

== ENCOUNTER → 2021-10-11 | Outpatient (CLI) | payer MEDICARE, BC ==
--- NOTE | 2021-10-12 10:06 | CA ---
Transthoracic Echo Report Name: Cuate Gomez Age: 65 Gender: M : 1955 Exam Date: 10/11/2021 13:01 Exam Location: [facility] Ht (in): 68 Wt (lb): 180 Ordering Physician: Aneudy Bar MD Attending/Referring Phys: Business Account Specialist Connie Barbosa RDCS Procedure CPT: Indications: Z01.818 Chemo exposure Cardiac Hx: Technical Quality: Fair Contrast 1: Total Dose (mL): Contrast 2: Total Dose (mL): MEASUREMENTS (Male / Female) Normal Values 2D ECHO LV Diastolic Diameter PLAX 3.8 cm 4.2 - 5.9 / 3.9 - 5.3 cm LV Systolic Diameter PLAX 1.7 cm IVS Diastolic Thickness 0.9 cm 0.6 - 1.0 / 0.6 - 0.9 cm LVPW Diastolic Thickness 1.0 cm 0.6 - 1.0 / 0.6 - 0.9 cm LV Relative Wall Thickness 0.5 RV Internal Dim ED PLAX 2.4 cm LA Volume 43.4 cm??? 18 - 58 / 22 - 52 cm??? M-MODE Aortic Root Diameter MM 3.6 cm LA Systolic Diameter MM 3.0 cm LA Ao Ratio MM 0.8 MV E Point Septal Separation 0.7 cm AV Cusp Separation MM 1.9 cm DOPPLER AV Peak Velocity 169.4 cm/s AV Peak Gradient 11.5 mmHg AI Peak Velocity 193.5 cm/s AI Peak Gradient 15.0 mmHg AI Pressure Half Time 458.9 ms MV Area PHT 8.2 cm??? MR Peak Velocity 151.7 cm/s MR Peak Gradient 9.2 mmHg Mitral E Point Velocity 72.4 cm/s Mitral A Point Velocity 95.0 cm/s Mitral E to A Ratio 0.8 MV Deceleration Time 93.0 ms MV E' Velocity 8.8 cm/s Mitral E to MV E' Ratio 8.2 TR Peak Velocity 263.6 cm/s TR Peak Gradient 27.8 mmHg Right Ventricular Systolic Press 30.2 mmHg FINDINGS Left Ventricle Normal Left ventricular size, wall thickness, systolic function with no obvious regional wall motion abnormalities. Normal Left ventricular diastolic filling pattern. Left ventricular ejection fraction is estimated at 55-60 %. Right Ventricle The right ventricle is normal in size and function. Right Atrium The right atrium is normal in size. Left Atrium The left atrium is normal in size. Mitral Valve Structurally normal mitral valve without significant stenosis or prolapse. There is trace mitral regurgitation. Aortic Valve Structurally normal aortic valve without significant sclerosis or stenosis. There is no aortic regurgitation. Tricuspid Valve Structurally normal tricuspid valve without significant stenosis. Pulmonary artery systolic pressure is normal. Trace tricuspid regurgitation. Pulmonic Valve Structurally normal pulmonic valve without significant stenosis. There is no pulmonic regurgitation. Pericardium Normal pericardium without effusion. Aorta Normal aortic root dimension. CONCLUSIONS Normal left ventricular dimension and systolic function Previewed by: Dr. Luisito Cox MD (Electronically Signed) Final Date: 12 October 2021 10:05
== END | disposition home or self-care (01) ==
LOC: RADECHMAIN 12:16
PROVIDERS: ATTEND Internal Medicine
DX: Z01.818 Encounter for other preprocedural examination (principal)
CPT/HCPCS: 93306